=== PATIENT | female | born 1985 | race Caucasian/White ===

== ENCOUNTER → 2021-05-23 | Outpatient (REF) | LOC: M EMP 08:35 | PROVIDERS: ATTEND Family Medicine | DX: Z11.52 Encounter for screening for COVID-19 (principal) ==

== ENCOUNTER → 2021-05-27 | Outpatient (REF) | LOC: M LABSMTC 09:34 | PROVIDERS: ATTEND Pediatrics | DX: Z11.52 Encounter for screening for COVID-19 (principal) ==

== ENCOUNTER → 2023-07-15 | Outpatient (REF) | LOC: M EMP 08:51 | PROVIDERS: ATTEND Family Medicine | DX: Z11.52 Encounter for screening for COVID-19 (principal) ==

== ENCOUNTER → 2024-04-22 | Outpatient (REF) | payer BC ==
[2024-04-23 03:24] LABS: RSV AMPLIFICATION NEGATIVE (NEGATIVE)
== END ==
LOC: M LAB REF 20:30
PROVIDERS: ATTEND Physician Assistant
DX: J11.89 Influenza due to unidentified influenza virus with other manifestations (principal)

== ENCOUNTER → 2024-10-06 | Outpatient (REF) | LOC: M EMP 07:40 | PROVIDERS: ATTEND Family Medicine | DX: Z01.89 Encounter for other specified special examinations (principal) ==

== ENCOUNTER → 2024-10-21 | Outpatient (CLI) | payer BC | LOC: M RAD 11:27 | PROVIDERS: ATTEND Physician Assistant Medical | DX: M25.511 Pain in right shoulder (principal) ==